=== PATIENT | female | born 1995 | race Caucasian/White ===

== ENCOUNTER 2018-03-08 09:37 | Inpatient (IN) | payer OTHER ==
[2018-03-08] MEDS ORDERED: DEXTROSE 5%-LACTATED RINGERS 1,000 ML IV SCH ×2 (10:00→18:15)
[2018-03-08 10:44] VITALS: BMI 32.5
[2018-03-08 10:56] LABS: BASO % 0.8 % (0-2.0); EOS % 0.6 % (0-4.5); HEMATOCRIT 40.7 % (32.4-45.2); HEMOGLOBIN 13.2 GM/dL (10.7-15.3); LYMPH % 14.5 % (8-40); MCH 28.4 pg (25.7-33.7); MCHC 32.6 g/dl (32.0-36.0); MEAN CELL VOLUME 87.2 fl (80-96); MEAN PLT VOLUME 9.6 fl (7.5-11.1); MONO % 6.2 % (3.8-10.2); NEUT % 77.9 % (42.8-82.8); PLATELET COUNT 263 K/MM3 (134-434); RBC 4.66 M/mm3 (3.60-5.2); RDW 15.5 % (11.6-15.6); WHITE BLOOD COUNT 13.4 K/mm3 (4.0-10.0)
[2018-03-08 11:01] LABS: INR 0.98 (0.83-1.09); PROTHROMBIN TIME (PATIENT) 11.6 SEC (9.7-13.0)
[2018-03-08 11:04] LABS: ACTIVATED PTT 25.5 SECONDS (25.2-36.5)
[2018-03-08] MEDS ORDERED: PROMETHAZINE HCL 25 MG/1 ML VIAL IVPB ONE (11:05)
[2018-03-08] MEDS ORDERED: BUTORPHANOL TARTRATE 1 MG/ML VIAL IVPB ONE (11:05)
[2018-03-08] MEDS ORDERED: BUTORPHANOL TARTRATE 1 MG/ML VIAL ONE ×4 (11:09→14:26)
[2018-03-08] MEDS ORDERED: PROMETHAZINE HCL 25 MG/1 ML VIAL ONE ×2 (11:10→14:27)
[2018-03-08 11:39] LABS: ANION GAP 9 MMOL/L (8-16); BLOOD UREA NITROGEN 5 mg/dL (7-18); CALCIUM 9.6 mg/dL (8.5-10.1); CHLORIDE 105 mmol/L (98-107); CO2 20 mmol/L (21-32); CREATININE 0.5 mg/dL (0.55-1.3); GLUCOSE,RANDOM 107 mg/dL (74-106); POTASSIUM 4.4 mmol/L (3.5-5.1); SODIUM 135 mmol/L (136-145)
[2018-03-08] MEDS ORDERED: PROMETHAZINE HCL 25 MG/1 ML VIAL IVPUSH ONE (14:35)
[2018-03-08] MEDS ORDERED: BUTORPHANOL TARTRATE 1 MG/ML VIAL IVPUSH ONE (14:35)
--- NOTE | 2018-03-08 18:10 | HP ---
Past Medical History - Admission Chief Complaint: Labor pain History of Present Illness: 22 yo , LMP 05/26/17, EDC 03/06/18 @ 40 weeks gestation, admitted for labor pain. Upon admission she was 4cm dilated. History Source: Patient Limitations to Obtaining History: No Limitations - Past Medical History ...: 1 ...Para: 0 ...Term: 0 ...: 0 ...Spon : 0 ...Induced : 0 ...Multiple Gestation: 0 ...LMP: 05/26/17 ... Weeks Gestation by Dates: 39.3 ...EDC by Dates: 03/12/18 ...EDC by Sono: 03/06/18 - Past Surgical History Past Surgical History: Yes: None Hx Myomectomy: No Hx Transabdominal Cerclage: No - Smoking History Smoking history: Unknown if ever smoked Have you smoked in the past 12 months: No - Alcohol/Substance Use Hx Alcohol Use: No History of Substance Use: reports: None - Social History Usual Living Arrangement: Yes: With Parent History of Recent Travel: No Home Medications - Allergies Allergies/Adverse Reactions: Allergies Allergy/AdvReac Type Severity Reaction Status Date / Time No Known Allergies Allergy Verified 03/08/18 10:44 - Home Medications Home Medications: Ambulatory Orders Vit 108/Iron/Folic AC [ One Tablet] 1 each PO DAILY 01/05/18 Family Disease History - Family Disease History Family History: Unremarkable Review of Systems - Review of Systems Constitutional: reports: No Symptoms Eyes: reports: No Symptoms HENT: reports: No Symptoms Neck: reports: No Symptoms Cardiovascular: reports: No Symptoms Respiratory: reports: No Symptoms Gastrointestinal: reports: No Symptoms Genitourinary: reports: Pain Breasts: reports: No Symptoms Reported Musculoskeletal: reports: No Symptoms Integumentary: reports: No Symptoms Neurological: reports: No Symptoms Endocrine: reports: No Symptoms Hematology/Lymphatic: reports: No Symptoms Psychiatric: reports: No Symptoms Pain Intensity: 8 Physical Exam - Maternity Vital Signs: Vital Signs Temperature 99.1 F 03/08/18 14:00 Pulse Rate 112 H 03/08/18 17:00 Respiratory Rate 20 03/08/18 17:00 Blood Pressure 134/78 03/08/18 17:00 O2 Sat by Pulse Oximetry (%) Constitutional: Yes: Well Nourished Eyes: Yes: Conjunctiva Clear HENT: Yes: Atraumatic Neck: Yes: Supple Cardiovascular: Yes: Regular Rate and Rhythm Lungs: Clear to auscultation - Abdominal Exam/OB Number of Fetuses: Single Presentation: Vertex - Vaginal Exam/OB Dilatation (cm): 4 Effacement (%): 80 Station: -1 - Physical Exam ...Motor Strength: WNL Psychiatric: Yes: Alert, Oriented - Labs Lab Results: CBC, BMP 03/08/18 10:32 03/08/18 10:32 Problem List - Problems (1) Pain during labor Code(s): O99.89 - OTH DISEASES AND CONDITIONS COMPL PREG/CHLDBRTH; R52 - PAIN, UNSPECIFIED Assessment/Plan Active labor Admit to L&D Analgesia as needed Anticipate
[2018-03-08] MEDS ORDERED: OXYTOCIN 30 UNITS in 0.9% NS 30 UNIT/500 ML INFUS.BAG IVPB SCH (18:15)
--- NOTE | 2018-03-08 18:15 | PN ---
Progress Note (short form) - Note Progress Note: Patient seen and evaluated. She's in moderate discomfort after 2 doses of stadol; she refuses epidural anesthesia. FHR : Reassuring [place] : + irregular contractions VE : /-2 AROM : Light meconium A/P : 40 weeks gestation Active labor Pitocin augmentation Anticipate Problem List - Problems (1) Pain during labor Code(s): O99.89 - OTH DISEASES AND CONDITIONS COMPL PREG/CHLDBRTH; R52 - PAIN, UNSPECIFIED
--- NOTE | 2018-03-08 19:56 | PN ---
Progress Note (short form) - Note Progress Note: Patient seen and evaluated. She's in moderate discomfort after 2 doses of stadol; she refuses epidural anesthesia. FHR : Reassuring [place] : + irregular contractions VE : 8100/-1 A/P : 40 weeks gestation Failure to progress Pre op for primary Consent signed Anesthesia to see patient Problem List - Problems (1) Pain during labor Code(s): O99.89 - OTH DISEASES AND CONDITIONS COMPL PREG/CHLDBRTH; R52 - PAIN, UNSPECIFIED
[2018-03-08] MEDS ORDERED: morphine SULFATE/Preservative Free 0.5 MG/ML (1cc Syringe) ONE (20:36)
[2018-03-08] MEDS ORDERED: CITRIC ACID/SODIUM CITRATE 30 ML UNIT-DOSE CUP PO ONE (20:40)
[2018-03-08] MEDS ORDERED: ceFAZolin SODIUM 1 GM VIAL ONE (20:51)
[2018-03-08] MEDS ORDERED: PHENYLEPHRINE HCL 10 MG/1 ML SINGLE DOSE VIAL ONE (20:54)
[2018-03-08] MEDS ORDERED: METHYLERGONOVINE MALEATE 0.2 MG/1 ML AMP IM PRN (21:36)
[2018-03-08] MEDS ORDERED: IBUPROFEN 800 MG/8 ML IJ IVPB PRN (21:36)
--- NOTE | 2018-03-08 21:39 | OP ---
Operative Note - Note: Operative Date: 03/08/18 Pre-Operative Diagnosis: Failure to progress Operation: Primary Low Transverse Findings: Baby boy in LOT position Post-Operative Diagnosis: Same as Pre-op Surgeon: Doretha Ochoa Plane Captain: Brynn Snow Anesthesia: Spinal Specimens Removed: Placenta Estimated Blood Loss (mls): 600 Operative Report Dictated: Yes
[2018-03-08] MEDS ORDERED: OXYTOCIN 20 UNITS in 0.9% NS 20 UNIT/1,000 ML INFUS.BAG IV SCH (21:45)
[2018-03-08] MEDS ORDERED: OXYTOCIN 20 UNITS in 0.9% NS 20 UNIT/1,000 ML INFUS.BAG IV ONE (22:26)
[2018-03-09] MEDS: FERROUS SO4 325 MG TABLET (FP) PO SCH ×3 (01:03→22:13)
[2018-03-09 07:38] LABS: BASO % 0.5 % (0-2.0); EOS % 0.1 % (0-4.5); MCH 28.5 pg (25.7-33.7); MCHC 32.2 g/dl (32.0-36.0); MEAN CELL VOLUME 88.5 fl (80-96); MEAN PLT VOLUME 9.7 fl (7.5-11.1); MONO % 7.9 % (3.8-10.2); NEUT % 77.5 % (42.8-82.8); PLATELET COUNT 198 K/MM3 (134-434); RBC 3.84 M/mm3 (3.60-5.2); RDW 15.5 % (11.6-15.6)
--- NOTE | 2018-03-09 07:45 | PN ---
Post Progress Note - Subjective Subjective: 22 yo Para 1 status post primary , seen and evaluated. Doing well. Post Day: 1 Type of Delivery: Primary C/S Vital Signs: Vital Signs Temperature 98.7 F 03/09/18 06:00 Pulse Rate 118 H 03/09/18 06:00 Respiratory Rate 18 03/09/18 06:00 Blood Pressure 111/56 L 03/09/18 06:00 O2 Sat by Pulse Oximetry (%) 100 03/09/18 00:00 Breast Exam: Yes: Soft Uterus: Yes: Fundus @ umbilicus Incision: Yes: Dressing dry and intact Abdomen/GI: Yes: Abdomen soft Lochia: Yes: Rubra Lochia, amount: Small Extremities: Yes: Calves non-tender Activity: Other (She's lying in bed) - Labs Labs: CBC WBC 13.4 K/mm3 (4.0-10.0) H 03/08/18 10:32 RBC 4.66 M/mm3 (3.60-5.2) 03/08/18 10:32 Hgb 13.2 GM/dL (10.7-15.3) 03/08/18 10:32 Hct 40.7 % (32.4-45.2) 03/08/18 10:32 MCV 87.2 fl (80-96) 03/08/18 10:32 MCH 28.4 pg (25.7-33.7) 03/08/18 10:32 MCHC 32.6 g/dl (32.0-36.0) 03/08/18 10:32 RDW 15.5 % (11.6-15.6) 03/08/18 10:32 Plt Count 263 K/MM3 (134-434) 03/08/18 10:32 MPV 9.6 fl (7.5-11.1) 03/08/18 10:32 Absolute Neuts (auto) 10.5 K/mm3 (1.5-8.0) H 03/08/18 10:32 Neutrophils % 77.9 % (42.8-82.8) 03/08/18 10:32 Lymphocytes % 14.5 % (8-40) 03/08/18 10:32 Monocytes % 6.2 % (3.8-10.2) 03/08/18 10:32 Eosinophils % 0.6 % (0-4.5) 03/08/18 10:32 Basophils % 0.8 % (0-2.0) 03/08/18 10:32 Nucleated RBC % 0 % (0-0) 03/08/18 10:32 Problem List - Problems (1) Pain during labor Code(s): O99.89 - OTH DISEASES AND CONDITIONS COMPL PREG/CHLDBRTH; R52 - PAIN, UNSPECIFIED (2) Status post primary low transverse section Code(s): Z98.891 - HISTORY OF UTERINE SCAR FROM PREVIOUS SURGERY Assessment/Plan Status post primary Low Transverse Ambulation Analgesia as needed Continue post op care
[2018-03-09] MEDS ORDERED: LACTATED RINGERS SOLUTION 1,000 ML IV SCH ×2 (09:10→10:10)
[2018-03-09] MEDS ORDERED: DEXTROSE 5%-WATER - 50 ML IVPB ONE ×2 (10:03→18:54)
[2018-03-09] MEDS ORDERED: ceFAZolin SODIUM 1 GM VIAL ONE ×2 (10:03→18:55)
[2018-03-09] MEDS: CEFAZOLIN 1 GM in DEXTROSE 5%-WATER - 50 ML IVPB SCH ×2 (10:10→18:57)
[2018-03-09] MEDS: PRENATAL VITAMINS W/ FOLIC ACID TABLET (FP) PO SCH (10:37)
--- NOTE | 2018-03-09 11:06 | EKG ---
Test Reason : Blood Pressure : / mmHG Vent. Rate : 135 BPM Atrial Rate : 135 BPM P-R Int : 122 ms QRS Dur : 070 ms QT Int : 280 ms P-R-T Axes : 068 023 011 degrees QTc Int : 420 ms SINUS TACHYCARDIA MINIMAL VOLTAGE CRITERIA FOR LVH, MAY BE NORMAL VARIANT BORDERLINE ECG NO PREVIOUS ECGS AVAILABLE Confirmed by RAMONA WALKER, WOODY ([id number]) on 03/09/2018 11:05:54 AM Referred By: Morro AN Confirmed By:WOODY GREENE MD
--- NOTE | 2018-03-09 11:32 | CONSULT ---
Consultation: REQUESTING PROVIDER: Dr. Ochoa CONSULT REQUEST: We have been asked to medically evaluate this patient for tachycardia. HISTORY OF PRESENT ILLNESS: Patient is a 22 year old female, , with no significant past medical history , presented with persistent tachycardia one day after she had section. Patient's heart rate continued to be at the 110-120s. She was also noted to have low grade fever with Tmax of 100.6F. Patient initially came in yesterday for trial of induction of labor, which became unsuccessful, and section was done. Rupture of membranes prior to delivery about 3 hours. Patient denies dizziness, lightheadedness, nausea, vomiting, chest pain, SOB, palpitations, diarrhea, or urinary symptoms. REVIEW OF SYSTEMS: CONSTITUTIONAL: fever Absent:chills, diaphoresis, generalized weakness, malaise, loss of appetite, weight change HEENT: Absent: rhinorrhea, nasal congestion, throat pain, throat swelling, difficulty swallowing, mouth swelling, ear pain, eye pain, visual changes CARDIOVASCULAR: Absent: chest pain, syncope, palpitations, irregular heart rate, lightheadedness , peripheral edema RESPIRATORY: Absent: cough, shortness of breath, dyspnea with exertion, orthopnea, wheezing, stridor, hemoptysis GASTROINTESTINAL:abdominal pain Absent: abdominal distension, nausea, vomiting, diarrhea, constipation, melena, hematochezia GENITOURINARY: Absent: dysuria, frequency, urgency, hesitancy, hematuria, flank pain, genital pain MUSCULOSKELETAL: Absent: myalgia, arthralgia, joint swelling, back pain, neck pain SKIN: Absent: rash, itching, pallor HEMATOLOGIC/IMMUNOLOGIC: Absent: easy bleeding, easy bruising, lymphadenopathy, frequent infections ENDOCRINE: Absent: unexplained weight gain, unexplained weight loss, heat intolerance, cold intolerance NEUROLOGIC: Absent: headache, focal weakness or paresthesias, dizziness, unsteady gait, seizure, mental status changes, bladder or bowel incontinence PSYCHIATRIC: Absent: anxiety, depression, suicidal or homicidal ideation, hallucinations. PHYSICAL EXAMINATION Vital Signs - 24 hr 03/08/18 03/08/18 03/08/18 12:00 12:57 14:00 Temperature 99.1 F Pulse Rate 94 H 93 H 120 H Respiratory 18 20 20 Rate Blood Pressure 124/64 123/61 129/61 O2 Sat by Pulse Oximetry (%) 03/08/18 03/08/18 03/08/18 15:00 16:00 17:00 Temperature Pulse Rate 118 H 109 H 112 H Respiratory 20 20 20 Rate Blood Pressure 125/78 135/80 134/78 O2 Sat by Pulse Oximetry (%) 03/08/18 03/08/18 03/08/18 18:00 19:00 22:00 Temperature 98.4 F 100.3 F H Pulse Rate 109 H 112 H 135 H Respiratory 20 20 22 H Rate Blood Pressure 140/80 138/82 104/65 O2 Sat by Pulse 99 Oximetry (%) 03/08/18 03/08/18 03/08/18 22:15 22:30 22:45 Temperature Pulse Rate 125 H 120 H 128 H Respiratory 22 H 22 H 22 H Rate Blood Pressure 124/65 109/76 118/70 O2 Sat by Pulse 100 100 99 Oximetry (%) 03/08/18 03/08/18 03/09/18 23:00 23:30 00:00 Temperature 100.3 F H Pulse Rate 115 H 111 H 99 H Respiratory 22 H 20 20 Rate Blood Pressure 126/79 122/78 122/78 O2 Sat by Pulse 99 100 100 Oximetry (%) 03/09/18 03/09/18 03/09/18 00:30 01:00 02:00 Temperature 99.9 F H 100.1 F H Pulse Rate 114 H 112 H Respiratory 18 18 18 Rate Blood Pressure 121/61 103/53 L O2 Sat by Pulse Oximetry (%) 03/09/18 03/09/18 03/09/18 03:00 04:00 05:00 Temperature Pulse Rate Respiratory 18 18 18 Rate Blood Pressure O2 Sat by Pulse Oximetry (%) 03/09/18 03/09/18 06:00 07:30 Temperature 98.7 F 100.6 F H Pulse Rate 118 H 134 H Respiratory 18 21 H Rate Blood Pressure 111/56 L 118/70 O2 Sat by Pulse Oximetry (%) GENERAL: Awake, alert, and fully oriented, in no acute distress. HEAD: Normal with no signs of trauma. EYES: PERRLA, EOMI, sclera anicteric, conjunctiva clear. No lid lag. EARS, NOSE, THROAT: Ears normal, nares patent, oropharynx clear without exudates. LUNGS: Breath sounds equal, clear to auscultation bilaterally. HEART: Tachycardic, normal S1 and S2 without murmur, rub or gallop. ABDOMEN: Soft, +tenderness on incision site, not distended, normoactive bowel sounds. MUSCULOSKELETAL: Normal range of motion at all joints. No bony deformities or tenderness. No CVA tenderness. UPPER EXTREMITIES: 2+ pulses, warm, well-perfused. No cyanosis. No clubbing. No peripheral edema. LOWER EXTREMITIES: 2+ pulses, warm, well-perfused. No calf tenderness. No peripheral edema. NEUROLOGICAL: Cranial nerves II-XII intact. Normal speech. Normal gait. PSYCHIATRIC: Cooperative. Good eye contact. Appropriate mood and affect. SKIN: Warm, dry, normal turgor, no rashes or lesions noted. Laboratory Results - last 24 hr 03/08/18 03/08/18 03/08/18 10:32 10:32 10:32 WBC RBC Hgb Hct MCV MCH MCHC RDW Plt Count MPV Absolute Neuts (auto) Neutrophils % Lymphocytes % Monocytes % Eosinophils % Basophils % Nucleated RBC % Sodium 135 L Potassium 4.4 Chloride 105 Carbon Dioxide 20 L Anion Gap 9 BUN 5 L Creatinine 0.5 L Creat Clearance w eGFR > 60 Random Glucose 107 H Calcium 9.6 RPR Titer Nonreactive Blood Type B POSITIVE Antibody Screen Negative 03/08/18 03/09/18 10:44 06:20 WBC 17.0 H RBC 3.84 Hgb 11.0 Hct 34.0 D MCV 88.5 MCH 28.5 MCHC 32.2 RDW 15.5 Plt Count 198 D MPV 9.7 Absolute Neuts (auto) 13.2 H Neutrophils % 77.5 Lymphocytes % 14.0 Monocytes % 7.9 Eosinophils % 0.1 D Basophils % 0.5 Nucleated RBC % 0 Sodium Potassium Chloride Carbon Dioxide Anion Gap BUN Creatinine Creat Clearance w eGFR Random Glucose Calcium RPR Titer Blood Type B POSITIVE Antibody Screen Active Medications Generic Name Dose Route Start Last Admin Trade Name Freq PRN Reason Stop Dose Admin Bisacodyl 10 mg 03/09/18 21:36 Dulcolax Suppository - RC PRN PRN CONSTIPATION Ferrous Sulfate 325 mg 03/08/18 22:00 03/09/18 10:37 Feosol - PO 325 mg BID STEPHEN Administration Dextrose/Lactated Ringer's 1,000 mls @ 125 mls/hr 03/08/18 18:15 03/08/18 18: 36 D5-Lr - IV Not Given ASDIR STEPHEN Oxytocin/Sodium Chloride 20 unit in 1,000 mls @ 125 mls/hr 03/08/18 21:45 22:25 Normal Saline+20 Units Oxytocin - IV 125 mls/hr ASDIR STEPHEN Administration Cefazolin Sodium 1 gm/ 50 mls @ 100 mls/hr 03/09/18 10:00 03/09/18 10:10 Dextrose IVPB 100 mls/hr Q8H-IV STEPHEN Administration Sodium Chloride 1,000 mls @ 100 mls/hr 03/09/18 11:30 Normal Saline - IV 03/10/18 21:29 ASDIR STEPHEN Ibuprofen 600 mg 03/08/18 21:36 Motrin - PO Q4H PRN PAIN LEVEL 1 - 3 Ibuprofen 800 mg 03/08/18 21:36 03/09/18 10:48 Caldolor Injection - IVPB 800 mg Q8H PRN Administration PAIN LEVEL 4 - 6 Methylergonovine Maleate 0.2 mg 03/08/18 21:36 Methergine Injection - IM Q4H PRN Excessive Bleeding (L&D) Oxycodone HCl 5 mg 03/08/18 21:36 Roxicodone - PO Q4H PRN PAIN LEVEL 4 - 6 Multivit/Folic Acid/Iron 1 tab 03/09/18 10:00 03/09/18 10:37 Vitamins (Sjr) - PO 1 tab DAILY STEPHEN Administration Simethicone 80 mg 03/08/18 21:36 Mylicon - PO Q4H PRN GAS ASSESSMENT/PLAN: Patient is a 22 year old female, , with no significant past medical history , presented with persistent tachycardia one day after she had section. #Sepsis: likely 2/2 chorioamnionitis vs endometritis -HR 120s, Temp 100.6F, WBC 17 -EKG done - sinus tachycardia. Will continue to monitor. -IV NS @100ml/hr x2L -Continue Cefazolin q8h -Blood cultures ordered -Urinalysis ordered -Lactic acid ordered #FEN -IV NS @100ml/hr -electrolytes wnl -diet as per OB #Prophylaxis -SCDs Dispo: We will continue to follow the patient. Thank you for this consultative opportunity. Visit type - Emergency Visit Emergency Visit: No - New Patient This patient is new to me today: Yes Date on this admission: 03/09/18 - Critical Care Critical Care patient: No
[2018-03-09] MEDS: SODIUM CHLORIDE 1,000 ML IV SCH ×2 (11:53→17:04)
[2018-03-09 12:23] LABS: URINE APPEARANCE CLEAR; URINE BILIRUBIN NEGATIVE (<2.0 mg/dL); URINE COLOR LTYELLOW; URINE GLUCOSE (UA) NEGATIVE (NEGATIVE); URINE KETONE TRACE (NEGATIVE); URINE LEUK ESTERASE NEGATIVE (NEGATIVE); URINE NITRITE NEGATIVE (NEGATIVE); URINE PROTEIN NEGATIVE (NEGATIVE); URINE UROBILINOGEN NEGATIVE mg/dL (0.2-1.0)
[2018-03-09 12:28] LABS: EPI CELLS RARE /HPF (FEW); URINE BACTERIA RARE /hpf (NONE SEEN); URINE MUCUS RARE
--- NOTE | 2018-03-09 12:59 | PN ---
Progress Note (short form) - Note Progress Note: ANESTHESIOLOGY 22F s/p under spinal anesthesia POD #1. No acute complaints. Pain 0/ 10 and tolerable with TECHNICAL AGRONOMIST. Denies N/V, headache, backache, numbness, weakness. Gen: awake, alert , NAD Ext: no sensory or motor deficits in B/L lower ext No apparent anesthesia complications. Pain controlled. Continue management as per primary team
--- NOTE | 2018-03-09 13:20 | PN ---
Teaching Attending Note Name of Resident: Akila Guzman ATTENDING PHYSICIAN STATEMENT I saw and evaluated the patient. I reviewed the resident's note and discussed the case with the resident. I agree with the resident's findings and plan as documented. SUBJECTIVE:states she had some abdominal pain earlier but now feels better. denies Cp, SOB, fever, chills, N/V/C/D, denies vaginal discharge or hemoptysis no hx of cardiac problems. no family hx of cardiac disease. only took vitamin. OBJECTIVE: Last Vital Signs Temp Pulse Resp BP Pulse Ox 100.6 F H 134 H 21 H 118/70 100 03/09/18 07:30 03/09/18 07:30 03/09/18 07:30 03/09/18 07:30 03/09/18 00:00 General fatigued CV S1 S2 tachy Lungs CTA B/L no wheezing/rales/rhonchi Abdomen soft +gravid uterus. diffuse tenderness Extremities trace pedal edema, no calf tenderness ASSESSMENT AND PLAN: 22yo F with no PMH presented to the hospital in active labor. due to failure to progress pt had performed on 03/08 without complication. Medicine team consulted due to tachycardia. Medicine consulted due to tachycardia and found to meet SIRS criteria 1.Tachycardia- stat EKG done showing sinus tachycardia. currently HR is 112 on my exam. likely due to dehydration and pain from surgery. pt had low grade fever and with leukocytosis but is within 24H post-op from . Check lactate, UA and blood cx. pt was negative for GBS and there was no PROM to suggest endometritis or chorioamionitis and abdominal pain is not out of proportion to exam. started on prophylactic cefazolin by OB. will give another 2L NS bolus and hydrate. encourage pt to request pain medications as needed. 2. spoke wtih family present in the room. all questions answered. verbalized understanding and agreement to plan.
[2018-03-09] MEDS: IBUPROFEN 600 MG TABLET (FP) PO PRN (17:03)
[2018-03-09] MEDS: oxyCODONE HCL 5 MG TABLET PO PRN (17:03)
[2018-03-09] MEDS: SIMETHICONE 80 MG TAB.CHEW (FP) PO PRN (17:04)
[2018-03-09] MEDS ORDERED: BISACODYL 10 MG SUPP.RECT RC PRN (21:36)
[2018-03-10] MEDS: SIMETHICONE 80 MG TAB.CHEW (FP) PO PRN ×3 (00:56→20:12)
[2018-03-10] MEDS: oxyCODONE HCL 5 MG TABLET PO PRN ×3 (00:58→20:12)
[2018-03-10] MEDS: IBUPROFEN 600 MG TABLET (FP) PO PRN ×3 (00:59→20:12)
[2018-03-10] MEDS ORDERED: ceFAZolin SODIUM 1 GM VIAL ONE ×3 (01:04→17:06)
[2018-03-10] MEDS ORDERED: DEXTROSE 5%-WATER - 50 ML IVPB ONE ×3 (01:04→17:06)
[2018-03-10] MEDS: CEFAZOLIN 1 GM in DEXTROSE 5%-WATER - 50 ML IVPB SCH ×3 (01:05→17:11)
--- NOTE | 2018-03-10 06:04 | PN ---
Post Progress Note - Subjective Subjective: 22 yo Para 1 status post primary , seen and evaluated. Doing well. She denies any palpitation nor SOB. She's afebrile. Post Day: 2 Type of Delivery: Primary C/S Vital Signs: Vital Signs Temperature 98.3 F 03/10/18 05:57 Pulse Rate 103 H 03/10/18 05:57 Respiratory Rate 18 03/10/18 05:57 Blood Pressure 122/62 03/10/18 05:57 O2 Sat by Pulse Oximetry (%) 100 03/09/18 21:00 Breast Exam: Yes: Soft Uterus: Yes: Fundus Firm Incision: Yes: Dressing dry and intact Abdomen/GI: Yes: Abdomen soft, Tolerating PO Lochia: Yes: Rubra Lochia, amount: Small Extremities: Yes: Calves non-tender Perineum: Yes: Intact Activity: Ambulating - Labs Labs: CBC WBC 17.0 K/mm3 (4.0-10.0) H 03/09/18 06:20 RBC 3.84 M/mm3 (3.60-5.2) 03/09/18 06:20 Hgb 11.0 GM/dL (10.7-15.3) 03/09/18 06:20 Hct 34.0 % (32.4-45.2) D 03/09/18 06:20 MCV 88.5 fl (80-96) 03/09/18 06:20 MCH 28.5 pg (25.7-33.7) 03/09/18 06:20 MCHC 32.2 g/dl (32.0-36.0) 03/09/18 06:20 RDW 15.5 % (11.6-15.6) 03/09/18 06:20 Plt Count 198 K/MM3 (134-434) D 03/09/18 06:20 MPV 9.7 fl (7.5-11.1) 03/09/18 06:20 Absolute Neuts (auto) 13.2 K/mm3 (1.5-8.0) H 03/09/18 06:20 Neutrophils % 77.5 % (42.8-82.8) 03/09/18 06:20 Lymphocytes % 14.0 % (8-40) 03/09/18 06:20 Monocytes % 7.9 % (3.8-10.2) 03/09/18 06:20 Eosinophils % 0.1 % (0-4.5) D 03/09/18 06:20 Basophils % 0.5 % (0-2.0) 03/09/18 06:20 Nucleated RBC % 0 % (0-0) 03/09/18 06:20 Problem List - Problems (1) Pain during labor Code(s): O99.89 - OTH DISEASES AND CONDITIONS COMPL PREG/CHLDBRTH; R52 - PAIN, UNSPECIFIED (2) Status post primary low transverse section Code(s): Z98.891 - HISTORY OF UTERINE SCAR FROM PREVIOUS SURGERY Assessment/Plan Status post primary Low Transverse Ambulation Analgesia as needed Follow up repeat CBC
[2018-03-10 07:51] LABS: BASO % 0.3 % (0-2.0); EOS % 1.2 % (0-4.5); HEMATOCRIT 30.7 % (32.4-45.2); HEMOGLOBIN 10.3 GM/dL (10.7-15.3); MCH 29.5 pg (25.7-33.7); MCHC 33.4 g/dl (32.0-36.0); MEAN CELL VOLUME 88.1 fl (80-96); MEAN PLT VOLUME 9.5 fl (7.5-11.1); MONO % 6.2 % (3.8-10.2); NEUT % 74.3 % (42.8-82.8); PLATELET COUNT 229 K/MM3 (134-434); RBC 3.49 M/mm3 (3.60-5.2); RDW 15.6 % (11.6-15.6); WHITE BLOOD COUNT 15.5 K/mm3 (4.0-10.0)
[2018-03-10] MEDS: FERROUS SO4 325 MG TABLET (FP) PO SCH ×3 (10:27→22:15)
[2018-03-10] MEDS: PRENATAL VITAMINS W/ FOLIC ACID TABLET (FP) PO SCH (10:27)
--- NOTE | 2018-03-10 16:58 | CONSULT ---
Consultation: REQUESTING PROVIDER: Dr. Ochoa CONSULT REQUEST: We have been asked to medically evaluate this patient for tachycardia HISTORY OF PRESENT ILLNESS: REVIEW OF SYSTEMS: CONSTITUTIONAL: Absent: fever, chills, diaphoresis, generalized weakness, malaise, loss of appetite, weight change HEENT: Absent: rhinorrhea, nasal congestion, throat pain, throat swelling, difficulty swallowing, mouth swelling, ear pain, eye pain, visual changes CARDIOVASCULAR: Absent: chest pain, syncope, palpitations, irregular heart rate, lightheadedness , peripheral edema RESPIRATORY: Absent: cough, shortness of breath, dyspnea with exertion, orthopnea, wheezing, stridor, hemoptysis GASTROINTESTINAL: Absent: abdominal pain, abdominal distension, nausea, vomiting, diarrhea, constipation, melena, hematochezia GENITOURINARY: Absent: dysuria, frequency, urgency, hesitancy, hematuria, flank pain, genital pain MUSCULOSKELETAL: Absent: myalgia, arthralgia, joint swelling, back pain, neck pain SKIN: Absent: rash, itching, pallor HEMATOLOGIC/IMMUNOLOGIC: Absent: easy bleeding, easy bruising, lymphadenopathy, frequent infections ENDOCRINE: Absent: unexplained weight gain, unexplained weight loss, heat intolerance, cold intolerance NEUROLOGIC: Absent: headache, focal weakness or paresthesias, dizziness, unsteady gait, seizure, mental status changes, bladder or bowel incontinence PSYCHIATRIC: Absent: anxiety, depression, suicidal or homicidal ideation, hallucinations. PHYSICAL EXAMINATION Vital Signs - 24 hr 03/09/18 03/09/18 03/09/18 18:00 19:00 20:00 Temperature 98.7 F Pulse Rate 111 H Respiratory 20 18 18 Rate Blood Pressure 117/65 O2 Sat by Pulse Oximetry (%) 03/09/18 03/09/18 03/10/18 21:00 22:00 02:00 Temperature 98 F 98.1 F Pulse Rate 117 H 116 H Respiratory 18 18 18 Rate Blood Pressure 105/59 L 124/48 L O2 Sat by Pulse 100 Oximetry (%) 03/10/18 03/10/18 03/10/18 05:57 07:30 13:29 Temperature 98.3 F 98.5 F 98.2 F Pulse Rate 103 H 109 H 106 H Respiratory 18 18 18 Rate Blood Pressure 122/62 110/69 121/61 O2 Sat by Pulse Oximetry (%) GENERAL: Awake, alert, and fully oriented, in no acute distress. HEAD: Normal with no signs of trauma. EYES: Pupils equal, round and reactive to light, extraocular movements intact, sclera anicteric, conjunctiva clear. No lid lag. EARS, NOSE, THROAT: Ears normal, nares patent, oropharynx clear without exudates. Moist mucous membranes. NECK: Normal range of motion, supple without lymphadenopathy, JVD, or masses. LUNGS: Breath sounds equal, clear to auscultation bilaterally. No wheezes, and no crackles. No accessory muscle use. HEART: Regular rate and rhythm, normal S1 and S2 without murmur, rub or gallop. ABDOMEN: Soft, nontender, not distended, normoactive bowel sounds, no guarding, no rebound, no masses. No hepatomegaly or splenomegaly. MUSCULOSKELETAL: Normal range of motion at all joints. No bony deformities or tenderness. No CVA tenderness. UPPER EXTREMITIES: 2+ pulses, warm, well-perfused. No cyanosis. No clubbing. Cap refill <2 seconds. No peripheral edema. LOWER EXTREMITIES: 2+ pulses, warm, well-perfused. No calf tenderness. No peripheral edema. NEUROLOGICAL: Cranial nerves II-XII intact. Normal speech. Normal gait. PSYCHIATRIC: Cooperative. Good eye contact. Appropriate mood and affect. SKIN: Warm, dry, normal turgor, no rashes or lesions noted. Laboratory Results - last 24 hr 03/10/18 07:10 WBC 15.5 H RBC 3.49 L Hgb 10.3 L Hct 30.7 L MCV 88.1 MCH 29.5 MCHC 33.4 RDW 15.6 Plt Count 229 MPV 9.5 Absolute Neuts (auto) 11.5 H Neutrophils % 74.3 Lymphocytes % 18.0 D Monocytes % 6.2 Eosinophils % 1.2 D Basophils % 0.3 Nucleated RBC % 0 Active Medications Generic Name Dose Route Start Last Admin Trade Name Freq PRN Reason Stop Dose Admin Bisacodyl 10 mg 03/09/18 21:36 03/10/18 08:06 Dulcolax Suppository - RC 10 mg PRN PRN Administration CONSTIPATION Ferrous Sulfate 325 mg 03/08/18 22:00 03/10/18 10:27 Feosol - PO Not Given BID STEPHEN Dextrose/Lactated Ringer's 1,000 mls @ 125 mls/hr 03/08/18 18:15 03/08/18 18: 36 D5-Lr - IV Not Given ASDIR STEPHEN Oxytocin/Sodium Chloride 20 unit in 1,000 mls @ 125 mls/hr 03/08/18 21:45 22:25 Normal Saline+20 Units Oxytocin - IV 125 mls/hr ASDIR STEPHEN Administration Cefazolin Sodium 1 gm/ 50 mls @ 100 mls/hr 03/09/18 10:00 03/10/18 09:06 Dextrose IVPB 100 mls/hr Q8H-IV STEPHEN Administration Sodium Chloride 1,000 mls @ 100 mls/hr 03/09/18 11:30 03/09/18 17:04 Normal Saline - IV 03/10/18 21:29 100 mls/hr ASDIR STEPHEN Administration Ibuprofen 600 mg 03/08/18 21:36 03/10/18 11:38 Motrin - PO 600 mg Q4H PRN Administration PAIN LEVEL 1 - 3 Ibuprofen 800 mg 03/08/18 21:36 03/09/18 10:48 Caldolor Injection - IVPB 800 mg Q8H PRN Administration PAIN LEVEL 4 - 6 Methylergonovine Maleate 0.2 mg 03/08/18 21:36 Methergine Injection - IM Q4H PRN Excessive Bleeding (L&D) Oxycodone HCl 5 mg 03/08/18 21:36 03/10/18 11:37 Roxicodone - PO 5 mg Q4H PRN Administration PAIN LEVEL 4 - 6 Multivit/Folic Acid/Iron 1 tab 03/09/18 10:00 03/10/18 10:27 Vitamins (Sjr) - PO Not Given DAILY STEPHEN Simethicone 80 mg 03/08/18 21:36 03/10/18 11:39 Mylicon - PO 80 mg Q4H PRN Administration GAS ASSESSMENT/PLAN: Dispo: We will continue to follow the patient. Thank you for this consultative opportunity.
--- NOTE | 2018-03-10 17:00 | PN ---
Physical Exam: SUBJECTIVE: Patient seen and examined - mild abdominal pain persists, no chest pain or shortness of breath. Denies palpitations. OBJECTIVE: Vital Signs Period Temp Pulse Resp BP Sys/Hamilton Pulse Ox Last 24 Hr 98 F-98.7 F 103-117 18-20 105-124/48-69 100 GENERAL: A&Ox3, no acute distress EYES: PERRLA, EOMI ENT: Moist mucus membranes NECK: No JVD LUNGS: CTA, no wheezes HEART: mildly tachycardic, no murmurs ABDOMEN: Soft, nontender, BS present, abdominal scar on lower abdomen present, non-draining MUSCULOSKELETAL: No CVA Tenderness EXTREMITIES: 2+ pulses, no edema. NEUROLOGICAL: Cranial nerves II-XII intact. Laboratory Results - last 24 hr 03/10/18 07:10 WBC 15.5 H RBC 3.49 L Hgb 10.3 L Hct 30.7 L MCV 88.1 MCH 29.5 MCHC 33.4 RDW 15.6 Plt Count 229 MPV 9.5 Absolute Neuts (auto) 11.5 H Neutrophils % 74.3 Lymphocytes % 18.0 D Monocytes % 6.2 Eosinophils % 1.2 D Basophils % 0.3 Nucleated RBC % 0 Active Medications Generic Name Dose Route Start Last Admin Trade Name Freq PRN Reason Stop Dose Admin Bisacodyl 10 mg 03/09/18 21:36 03/10/18 08:06 Dulcolax Suppository - RC 10 mg PRN PRN Administration CONSTIPATION Ferrous Sulfate 325 mg 03/08/18 22:00 03/10/18 10:27 Feosol - PO Not Given BID STEPHEN Dextrose/Lactated Ringer's 1,000 mls @ 125 mls/hr 03/08/18 18:15 03/08/18 18: 36 D5-Lr - IV Not Given ASDIR STEPHEN Oxytocin/Sodium Chloride 20 unit in 1,000 mls @ 125 mls/hr 03/08/18 21:45 22:25 Normal Saline+20 Units Oxytocin - IV 125 mls/hr ASDIR STEPHEN Administration Cefazolin Sodium 1 gm/ 50 mls @ 100 mls/hr 03/09/18 10:00 03/10/18 09:06 Dextrose IVPB 100 mls/hr Q8H-IV STEPHEN Administration Sodium Chloride 1,000 mls @ 100 mls/hr 03/09/18 11:30 03/09/18 17:04 Normal Saline - IV 03/10/18 21:29 100 mls/hr ASDIR STEPHEN Administration Ibuprofen 600 mg 03/08/18 21:36 03/10/18 11:38 Motrin - PO 600 mg Q4H PRN Administration PAIN LEVEL 1 - 3 Ibuprofen 800 mg 03/08/18 21:36 03/09/18 10:48 Caldolor Injection - IVPB 800 mg Q8H PRN Administration PAIN LEVEL 4 - 6 Methylergonovine Maleate 0.2 mg 03/08/18 21:36 Methergine Injection - IM Q4H PRN Excessive Bleeding (L&D) Oxycodone HCl 5 mg 03/08/18 21:36 03/10/18 11:37 Roxicodone - PO 5 mg Q4H PRN Administration PAIN LEVEL 4 - 6 Multivit/Folic Acid/Iron 1 tab 03/09/18 10:00 03/10/18 10:27 Vitamins (Sjr) - PO Not Given DAILY STEPHEN Simethicone 80 mg 03/08/18 21:36 03/10/18 11:39 Mylicon - PO 80 mg Q4H PRN Administration GAS ASSESSMENT/PLAN: Patient is a 22 year old female, , with no significant past medical history , presented with persistent tachycardia one day after she had section. #Tachycardia: likely secondary to post-surgical stress vs dehydration -HR improved, continue to monitor -EKG done - sinus tachycardia. Will continue to monitor. -continue IV NS @100ml/hr x2L -Continue Cefazolin q8h per OB -f/u cultures #FEN -IV NS @100ml/hr -electrolytes wnl -diet as per OB #Prophylaxis -SCDs Dispo: We will continue to follow the patient. Thank you for this consultative opportunity. Visit type - Emergency Visit Emergency Visit: No - New Patient This patient is new to me today: No - Critical Care Critical Care patient: No
--- NOTE | 2018-03-10 17:05 | PN ---
Teaching Attending Note Name of Resident: Artis Brown ATTENDING PHYSICIAN STATEMENT I saw and evaluated the patient. I reviewed the resident's note and discussed the case with the resident. I agree with the resident's findings and plan as documented. SUBJECTIVE:conitnues to have pain but improved wtih medication.denies Cp, SOB, fever, chills, cough, hemoptysis OBJECTIVE: Last Vital Signs Temp Pulse Resp BP Pulse Ox 98.2 F 106 H 18 121/61 100 03/10/18 13:29 03/10/18 13:29 03/10/18 13:29 03/10/18 13:29 03/09/18 21:00 General NAD CV S1 S2 tachy Lungs CTA B/L no wheezing/rales/rhonchi Abdomen soft +gravid uterus. diffuse tenderness Extremities trace pedal edema, no calf tenderness ASSESSMENT AND PLAN: 22yo F with no PMH presented to the hospital in active labor. due to failure to progress pt had performed on 03/08 without complication. Medicine team consulted due to tachycardia. Medicine consulted due to tachycardia and found to meet SIRS criteria 1.Sinus Tachycardia-likely due to vs infection vs dehydration vs pain. overall now improved. would cont low dose IVF. empiric abx started by OB. encouraged pt to request pain medications if needed as it appears she is not requesting. f/u cx. 2. spoke wtih family present in the room. all questions answered. verbalized understanding and agreement to plan.
[2018-03-10] MEDS: SODIUM CHLORIDE 1,000 ML IV SCH (18:30)
[2018-03-11] MEDS ORDERED: DEXTROSE 5%-WATER - 50 ML IVPB ONE ×2 (01:45→09:07)
[2018-03-11] MEDS ORDERED: ceFAZolin SODIUM 1 GM VIAL ONE ×2 (01:46→09:07)
[2018-03-11] MEDS: CEFAZOLIN 1 GM in DEXTROSE 5%-WATER - 50 ML IVPB SCH ×2 (01:47→09:13)
[2018-03-11 08:11] LABS: BASO % 0.6 % (0-2.0); EOS % 2.8 % (0-4.5); HEMOGLOBIN 10.2 GM/dL (10.7-15.3); LYMPH % 18.9 % (8-40); MCH 28.2 pg (25.7-33.7); MCHC 31.8 g/dl (32.0-36.0); MEAN CELL VOLUME 88.5 fl (80-96); MEAN PLT VOLUME 9.5 fl (7.5-11.1); MONO % 5.5 % (3.8-10.2); NEUT % 72.2 % (42.8-82.8); PLATELET COUNT 231 K/MM3 (134-434); RBC 3.62 M/mm3 (3.60-5.2); RDW 15.4 % (11.6-15.6); WHITE BLOOD COUNT 13.6 K/mm3 (4.0-10.0)
[2018-03-11] MEDS: PRENATAL VITAMINS W/ FOLIC ACID TABLET (FP) PO SCH (09:13)
[2018-03-11] MEDS: FERROUS SO4 325 MG TABLET (FP) PO SCH ×3 (09:13→22:48)
--- NOTE | 2018-03-11 12:00 | PN ---
Post Progress Note - Subjective Subjective: 22 yo Para 1 status post primary , seen and evaluated. She's afebrile and white count is on decreasing trend. Post Day: 3 Type of Delivery: Primary C/S Vital Signs: Vital Signs Temperature 98.2 F 03/11/18 07:15 Pulse Rate 104 H 03/11/18 07:15 Respiratory Rate 18 03/11/18 07:15 Blood Pressure 138/70 03/11/18 07:15 O2 Sat by Pulse Oximetry (%) 100 03/09/18 21:00 Breast Exam: Yes: Soft Uterus: Yes: Fundus Firm Incision: Yes: Irene intact Abdomen/GI: Yes: Abdomen soft, Tolerating PO Lochia: Yes: Rubra Lochia, amount: Small Extremities: Yes: Calves non-tender Perineum: Yes: Intact Activity: Ambulating - Labs Labs: CBC WBC 13.6 K/mm3 (4.0-10.0) H 03/11/18 07:15 RBC 3.62 M/mm3 (3.60-5.2) 03/11/18 07:15 Hgb 10.2 GM/dL (10.7-15.3) L 03/11/18 07:15 Hct 32.0 % (32.4-45.2) L 03/11/18 07:15 MCV 88.5 fl (80-96) 03/11/18 07:15 MCH 28.2 pg (25.7-33.7) 03/11/18 07:15 MCHC 31.8 g/dl (32.0-36.0) L 03/11/18 07:15 RDW 15.4 % (11.6-15.6) 03/11/18 07:15 Plt Count 231 K/MM3 (134-434) 03/11/18 07:15 MPV 9.5 fl (7.5-11.1) 03/11/18 07:15 Absolute Neuts (auto) 9.8 K/mm3 (1.5-8.0) H 03/11/18 07:15 Neutrophils % 72.2 % (42.8-82.8) 03/11/18 07:15 Lymphocytes % 18.9 % (8-40) 03/11/18 07:15 Monocytes % 5.5 % (3.8-10.2) 03/11/18 07:15 Eosinophils % 2.8 % (0-4.5) D 03/11/18 07:15 Basophils % 0.6 % (0-2.0) 03/11/18 07:15 Nucleated RBC % 0 % (0-0) 03/11/18 07:15 Problem List - Problems (1) Pain during labor Code(s): O99.89 - OTH DISEASES AND CONDITIONS COMPL PREG/CHLDBRTH; R52 - PAIN, UNSPECIFIED (2) Status post primary low transverse section Code(s): Z98.891 - HISTORY OF UTERINE SCAR FROM PREVIOUS SURGERY Assessment/Plan Status post primary Low Transverse Stable Continue post op care D/C home in am
[2018-03-11] MEDS: oxyCODONE HCL 5 MG TABLET PO PRN (14:07)
[2018-03-11] MEDS: IBUPROFEN 600 MG TABLET (FP) PO PRN (14:09)
[2018-03-11] MEDS: SIMETHICONE 80 MG TAB.CHEW (FP) PO PRN (14:11)
--- NOTE | 2018-03-11 15:02 | PN ---
Teaching Attending Note Name of Resident: Bernard Evans ATTENDING PHYSICIAN STATEMENT I saw and evaluated the patient. I reviewed the resident's note and discussed the case with the resident. I agree with the resident's findings and plan as documented. SUBJECTIVE: asymptomatic. dnies CP, SOB, fever, chills, N/V/C/D OBJECTIVE: Last Vital Signs Temp Pulse Resp BP Pulse Ox 98.2 F 104 H 18 138/70 100 03/11/18 07:15 03/11/18 07:15 03/11/18 07:15 03/11/18 07:15 03/09/18 21:00 General NAD CV S1 S2 RRR no murmur/rub/gallop ASSESSMENT AND PLAN: 22yo F with no PMH presented to the hospital in active labor. due to failure to progress pt had performed on 03/08 without complication. Medicine team consulted due to tachycardia. Medicine consulted due to tachycardia and found to meet SIRS criteria 1.Sinus Tachycardia-likely due to vs infection vs dehydration vs pain. overall now improved. HR improved. would d/c IVF if eating well and consider stopping Abx as no source of infection. encouraged pt to f/u with PMD in 1-2weeks to re-evaluate and determine if further testing is necessary. 2. spoke wtih family present in the room. all questions answered. verbalized understanding and agreement to plan. 3. thank you for this consultative opportunity. PLease re-consult if needed
--- NOTE | 2018-03-11 19:34 | PN ---
Physical Exam: SUBJECTIVE: Patient seen and examined at bedside. No acute events overnight. Pt denies chest pain or shortness of breath. Denies fevers. OBJECTIVE: Vital Signs Period Temp Pulse Resp BP Sys/Hamilton Pulse Ox Last 24 Hr 97.8 F-98.5 F 100-118 18-18 103-138/60-84 GENERAL: AAOx3 NAD LUNGS: CTA B/L HEART: Tachycardia. no MRG S1S2 ABDOMEN: Soft, nondistended. surgical incision. No drainage or discharge. EXTREMITIES: No CCE NEUROLOGICAL: CN 2-12 intact PSYCH: Normal mood, normal affect. SKIN: Warm, no rashes or lesions appreciated Laboratory Results - last 24 hr 03/11/18 07:15 WBC 13.6 H RBC 3.62 Hgb 10.2 L Hct 32.0 L MCV 88.5 MCH 28.2 MCHC 31.8 L RDW 15.4 Plt Count 231 MPV 9.5 Absolute Neuts (auto) 9.8 H Neutrophils % 72.2 Lymphocytes % 18.9 Monocytes % 5.5 Eosinophils % 2.8 D Basophils % 0.6 Nucleated RBC % 0 Active Medications Generic Name Dose Route Start Last Admin Trade Name Freq PRN Reason Stop Dose Admin Bisacodyl 10 mg 03/09/18 21:36 03/10/18 08:06 Dulcolax Suppository - RC 10 mg PRN PRN Administration CONSTIPATION Ferrous Sulfate 325 mg 03/08/18 22:00 03/11/18 09:13 Feosol - PO 325 mg BID STEPHEN Administration Oxytocin/Sodium Chloride 20 unit in 1,000 mls @ 125 mls/hr 03/08/18 21:45 22:25 Normal Saline+20 Units Oxytocin - IV 125 mls/hr ASDIR STEPHEN Administration Ibuprofen 600 mg 03/08/18 21:36 03/11/18 14:09 Motrin - PO 600 mg Q4H PRN Administration PAIN LEVEL 1 - 3 Ibuprofen 800 mg 03/08/18 21:36 03/09/18 10:48 Caldolor Injection - IVPB 800 mg Q8H PRN Administration PAIN LEVEL 4 - 6 Methylergonovine Maleate 0.2 mg 03/08/18 21:36 Methergine Injection - IM Q4H PRN Excessive Bleeding (L&D) Oxycodone HCl 5 mg 03/08/18 21:36 03/11/18 14:07 Roxicodone - PO 5 mg Q4H PRN Administration PAIN LEVEL 4 - 6 Multivit/Folic Acid/Iron 1 tab 03/09/18 10:00 03/11/18 09:13 Vitamins (Sjr) - PO 1 tab DAILY STEPHEN Administration Simethicone 80 mg 03/08/18 21:36 03/11/18 14:11 Mylicon - PO 80 mg Q4H PRN Administration GAS ASSESSMENT/PLAN: Patient is a 22 year old female, , with no significant past medical history , presented with persistent tachycardia one day after she had section. #Tachycardia: likely secondary to post-surgical stress vs dehydration. Resolving. -Continue management as per OB. Re consult as needed. Thank you for this consultive opportunity. . Visit type - Emergency Visit Emergency Visit: No - New Patient This patient is new to me today: Yes Date on this admission: 03/11/18 - Critical Care Critical Care patient: No - Discharge Referral Referred to [facility] Med P.C.: No
[2018-03-12] MEDS: IBUPROFEN 600 MG TABLET (FP) PO PRN (00:09)
[2018-03-12] MEDS: SIMETHICONE 80 MG TAB.CHEW (FP) PO PRN (00:09)
[2018-03-12] MEDS: FERROUS SO4 325 MG TABLET (FP) PO SCH (09:11)
[2018-03-12] MEDS: PRENATAL VITAMINS W/ FOLIC ACID TABLET (FP) PO SCH (09:11)
[2018-03-12 09:22] VITALS: BP 132/82; PULSE 101; TEMP 98.4
--- NOTE | 2018-03-18 18:19 | PATH ---
Surgical Pathology Report Patient Name: MARTÍN WILKS [facility]. Rec. #: [id number] /Age/Gender: 1995 (Age: 22) / F Account: [id number] Location: [facility] OBS/STROBOSCOPE OPERATOR Taken: 03/08/2018 Received: 03/10/2018 Reported: 03/18/2018 Physicians: Doretha Ochoa M.D. Specimen(s) Received PLACENTA Clinical History , 40.2 weeks' gestation, history of meningitis as a baby Final Diagnosis PLACENTA: THIRD TRIMESTER PLACENTA. TRIVASCULAR CORD. MEMBRANES WITH NO DIAGNOSTIC ABNORMALITIES. Electronically Signed Nayana Guerrero M.D. Gross Description The specimen is received fresh labeled placenta and is a 418 gram, 16.0 x 15.0 x 2.6 cm. placenta with attached membranes and umbilical cord. The attached membranes are dietrich, translucent with focal opacities and insert marginally. The umbilical cord measures 33 cm. in length and averages 1.1 cm. in diameter. The cord inserts eccentrically, 4 cm. to the nearest margin. No true knots or strictures are identified. Cut surface of the umbilical cord reveals 3 vessels. The surface is cook-blue with minimal fibrin deposition and appropriate caliber vessels. The maternal surface is red-brown with focal defects. Sectioning reveals red-brown, spongy parenchyma. No lesions are identified. Channel Machine Operator sections are submitted in three cassettes as follows: 1- membrane rolls and umbilical cord; 2-3- full thickness sections of placenta. /03/17/2018 saudi03/17/2018
== END 2018-03-12 11:50 | disposition home or self-care (01) | DRG 540 ==
LOC: JDEL 09:37 → JLDR 09:37 → EDSTATUS 10:03 → J3W 03-09 00:30
PROVIDERS: ADMIT Obstetrics & Gynecology; ATTEND Obstetrics & Gynecology
PROC: 10D00Z1 Extraction of Products of Conception, Low, Open Approach (ICD-10-PCS; principal; 2018-03-08)
DX: O48.0 Post-term pregnancy (principal); O62.0 Primary inadequate contractions; O85 Puerperal sepsis; R00.0 Tachycardia, unspecified; E86.0 Dehydration; Z3A.40 40 weeks gestation of pregnancy; Z37.0 Single live birth
CPT/HCPCS: 36415; 80048; 81003; 81015; 83605; 85025; 85610; 85730; 86593; 86850; 86900; 86901; 87040; 88307-TC; 93005; 93010; J7030

== ENCOUNTER 2021-08-14 18:55 | Emergency (ER) | payer OTHER ==
[2021-08-14 19:05] VITALS: BMI 33.2
[2021-08-14] MEDS ORDERED: FAMOTIDINE 20 MG/50 ML IVPB 20 MG/50 ML MG IVPB ONE ×2 (19:53→20:13)
[2021-08-14] MEDS ORDERED: SODIUM CHLORIDE 1,000 ML IV STA (19:53)
[2021-08-14] MEDS ORDERED: ACETAMINOPHEN 1000 MG/100 ML BAG IVPB ONE (19:56)
[2021-08-14] MEDS ORDERED: ONDANSETRON 4 MG/2 ML VIAL IVPUSH ONE (20:00)
[2021-08-14] MEDS ORDERED: ONDANSETRON 4 MG/2 ML VIAL ONE (20:13)
[2021-08-14] MEDS ORDERED: ACETAMINOPHEN INJECTION 100 ML IVPB ONE (20:13)
[2021-08-14 20:51] LABS: BASO % 0.5 % (0-2.0); EOS % 1.2 % (0-4.5); HEMATOCRIT 30.7 % (32.4-45.2); HEMOGLOBIN 9.8 GM/dL (10.7-15.3); LYMPH % 19.7 % (8-40); MCH 22.4 pg (25.7-33.7); MCHC 31.8 g/dl (32.0-36.0); MEAN CELL VOLUME 70.4 fl (80-96); MEAN PLT VOLUME 8.9 fl (7.5-11.1); MONO % 6.6 % (3.8-10.2); PLATELET COUNT 390 10^3/uL (134-434); RBC 4.36 M/mm3 (3.60-5.2); RDW 18.3 % (11.6-15.6); WHITE BLOOD COUNT 13.6 K/mm3 (4.0-10.0)
[2021-08-14 21:08] LABS: CALCIUM 8.7 mg/dL (8.5-10.1)
[2021-08-14 21:09] LABS: ALBUMIN 3.4 g/dl (3.4-5.0); BLOOD UREA NITROGEN 9.4 mg/dL (7-18)
[2021-08-14 21:12] LABS: CREATININE 0.9 mg/dL (0.55-1.3)
[2021-08-14 21:13] LABS: BILIRUBIN,TOTAL 0.2 mg/dL (0.2-1)
[2021-08-14 21:14] LABS: TOT PROT 7.2 g/dl (6.4-8.2)
[2021-08-14 21:38] LABS: URINE APPEARANCE CLEAR; URINE BILIRUBIN NEGATIVE (NEGATIVE); URINE COLOR YELLOW; URINE GLUCOSE (UA) NEGATIVE (NEGATIVE); URINE KETONE TRACE (NEGATIVE); URINE LEUK ESTERASE NEGATIVE (NEGATIVE); URINE NITRITE NEGATIVE (NEGATIVE); URINE PROTEIN NEGATIVE (NEGATIVE)
[2021-08-15] VITALS: BP 122/75; PULSE 84; TEMP 98.1
== END 2021-08-15 | disposition home or self-care (01) ==
LOC: JER 18:55
PROC: 3E0333Z Introduction of Anti-inflammatory into Peripheral Vein, Percutaneous Approach (ICD-10-PCS; principal; 2021-08-14)
PROC: 3E033GC Introduction of Other Therapeutic Substance into Peripheral Vein, Percutaneous Approach (ICD-10-PCS; 2021-08-14)
PROC: 3E033GC Introduction of Other Therapeutic Substance into Peripheral Vein, Percutaneous Approach (ICD-10-PCS; 2021-08-14)
PROC: 3E0337Z Introduction of Electrolytic and Water Balance Substance into Peripheral Vein, Percutaneous Approach (ICD-10-PCS; 2021-08-14)
DX: K80.81 Other cholelithiasis with obstruction (principal)
CPT/HCPCS: 36415; 76705-TC; 80053; 81003; 83690; 84703; 85025; 93005; 93010; 99285-25

== ENCOUNTER → 2021-09-20 | Day surgery (SDC) | payer OTHER ==
[2021-09-19 11:03] VITALS: BMI 34.0
[~2021-09-20] MED LIST: BUPIVACAINE HCL/PF 0.5% (5MG/ML) 10 ML VIAL IJ ONE; BUPIVACAINE HCL/PF 0.5% (5MG/ML) 10 ML VIAL ONE; DEXAMETHASONE SOD PHOSPHATE 4 MG/1 ML VIAL ONE; GLYCOPYRROLATE 0.2 MG/1 ML VIAL ONE; HYDROmorphone HCl 2 MG/ML VIAL ONE; LACTATED RINGERS SOLUTION 1,000 ML IV SCH; LIDOCAINE HCL/PF 2% SDV 5ML VIAL ONE; MIDAZOLAM HCL 2 MG/2 ML SINGLE DOSE VIAL ONE; NEOSTIGMINE METHYLSULFATE 0.5 MG/ML - 10 ML MDV ONE; ONDANSETRON 4 MG/2 ML VIAL ONE; PROPOFOL 20 ML ONE; ROCURONIUM BROMIDE 50 MG/5 ML SYRINGE ONE; ceFAZolin SODIUM 1 GM VIAL IVPB ONE; ceFAZolin SODIUM 1 GM VIAL ONE; oxyCODONE HCL 5 MG TABLET PO PRN
[2021-09-20] MEDS: ONDANSETRON 4 MG/2 ML VIAL IVPUSH PRN ×2 (12:44→14:08)
[2021-09-20 13:44] VITALS: TEMP 97.5
[2021-09-20 19:47] VITALS: BP 114/70; PULSE 80
== END | disposition home or self-care (01) ==
LOC: JASU-SURG 04:05
PROVIDERS: ATTEND Surgery
PROC: 0FT44ZZ Resection of Gallbladder, Percutaneous Endoscopic Approach (ICD-10-PCS; principal; 2021-09-20 10:00)
DX: K80.10 Calculus of gallbladder with chronic cholecystitis without obstruction (principal)
CPT/HCPCS: 81025; 88304-TC; 94760

== ENCOUNTER 2023-01-15 14:05 | Emergency (ER) | payer OTHER ==
[2023-01-15 14:22] VITALS: BP 102/64; PULSE 94; RESP 18; TEMP 98.4; BMI 28.1
[2023-01-15 17:37] LABS: HCG,QUALITATIVE URINE Positive
[2023-01-15 17:43] LABS: EPI CELLS >36 /uL (0-25.1); HYALINE CASTS 0 /uL (0-3.1); PH,URINE 6.5 (5.0-8.0); URINE APPEARANCE CLEAR; URINE BACTERIA 1526 /uL (0-1359); URINE BILIRUBIN NEGATIVE (NEGATIVE); URINE COLOR YELLOW; URINE GLUCOSE (UA) NEGATIVE (NEGATIVE); URINE KETONE NEGATIVE (NEGATIVE); URINE LEUK ESTERASE 1+ (NEGATIVE); URINE NITRITE NEGATIVE (NEGATIVE); URINE PROTEIN NEGATIVE (NEGATIVE); URINE RBC 10 /uL (0-23.9); URINE UROBILINOGEN 0.2 mg/dL (0.2-1.0); URINE WBC 22 /uL (0-25.8)
[2023-01-15 17:49] LABS: BASO % 0.6 % (0-2.0); EOS % 2.4 % (0-4.5); HEMATOCRIT 32.6 % (32.4-45.2); HEMOGLOBIN 10.3 GM/dL (10.7-15.3); LYMPH % 36.3 % (8-40); MCH 23.9 pg (25.7-33.7); MCHC 31.7 g/dl (32.0-36.0); MEAN CELL VOLUME 75.6 fl (80-96); MEAN PLT VOLUME 9.6 fl (7.5-11.1); MONO % 8.1 % (3.8-10.2); NEUT % 52.6 % (42.8-82.8); PLATELET COUNT 297 10^3/uL (134-434); RBC 4.31 M/mm3 (3.60-5.2); RDW 23.2 % (11.6-15.6); WHITE BLOOD COUNT 10.7 K/mm3 (4.0-10.0)
[2023-01-15 17:55] LABS: INR 1.01 (0.83-1.09); PROTHROMBIN TIME (PATIENT) 11.7 SEC (9.7-13.0)
[2023-01-15 17:58] LABS: ACTIVATED PTT 28.9 SECONDS (25.2-36.5)
[2023-01-15 18:21] LABS: POTASSIUM 3.9 mmol/L (3.5-5.1)
[2023-01-15 18:22] LABS: CALCIUM 9.3 mg/dL (8.5-10.1)
[2023-01-15 18:23] LABS: BLOOD UREA NITROGEN 4.8 mg/dL (7-18)
[2023-01-15 18:26] LABS: CREATININE 0.5 mg/dL (0.55-1.3)
[2023-01-15 18:55] LABS: ANISOCYTOSIS 3+; MACROCYTOSIS 0; TARGET CELLS 1+; TEAR DROP CELLS 1+
== END 2023-01-15 19:31 | disposition home or self-care (01) ==
LOC: JER 14:05
DX: O20.9 Hemorrhage in early pregnancy, unspecified (principal); O23.92 Unspecified genitourinary tract infection in pregnancy, second trimester; R82.71 Bacteriuria; Z3A.15 15 weeks gestation of pregnancy
CPT/HCPCS: 36415; 76801-TC; 80048; 81003; 84702; 84703; 85025; 85610; 85730; 86850; 86900; 86901; 87086; 99284-25

== ENCOUNTER 2023-06-05 10:47 | Emergency (ER) | payer OTHER ==
[2023-06-05 11:04] VITALS: BMI 29.2
[2023-06-05] MEDS ORDERED: ACETAMINOPHEN 500 MG TABLET (FP) PO ONE (12:15)
[2023-06-05] MEDS ORDERED: SODIUM CHLORIDE 0.9% 500 ML INFUS.BAG IV ONE ×2 (12:15→14:10)
[2023-06-05] MEDS ORDERED: ACETAMINOPHEN INJECTION 100 ML IVPB ONE (12:36)
[2023-06-05 12:54] LABS: BASO % 0.4 % (0-2.0); EOS % 0.1 % (0-4.5); HEMATOCRIT 31.7 % (32.4-45.2); HEMOGLOBIN 10.3 GM/dL (10.7-15.3); LYMPH % 24.9 % (8-40); MCH 24.9 pg (25.7-33.7); MCHC 32.4 g/dl (32.0-36.0); MEAN PLT VOLUME 8.2 fl (7.5-11.1); MONO % 7.9 % (3.8-10.2); NEUT % 66.7 % (42.8-82.8); PLATELET COUNT 288 10^3/uL (134-434); RBC 4.12 M/mm3 (3.60-5.2); RDW 19.2 % (11.6-15.6); WHITE BLOOD COUNT 5.6 K/mm3 (4.0-10.0)
[2023-06-05 13:21] LABS: POTASSIUM 4.1 mmol/L (3.5-5.1)
[2023-06-05 13:24] LABS: CALCIUM 9.1 mg/dL (8.5-10.1)
[2023-06-05 13:25] LABS: ALBUMIN 2.6 g/dl (3.4-5.0); BLOOD UREA NITROGEN 4.5 mg/dL (7-18)
[2023-06-05 13:27] LABS: CREATININE 0.6 mg/dL (0.55-1.3)
[2023-06-05 13:28] LABS: TOT PROT 7.1 g/dl (6.4-8.2)
[2023-06-05 13:30] LABS: BILIRUBIN,TOTAL 0.2 mg/dL (0.2-1)
[2023-06-05 15:52] VITALS: BP 100/59; PULSE 112; RESP 20; TEMP 97.4
== END 2023-06-05 17:30 | disposition home or self-care (01) ==
LOC: JER 10:47
DX: O98.513 Other viral diseases complicating pregnancy, third trimester (principal); J10.1 Influenza due to other identified influenza virus with other respiratory manifestations; O99.513 Diseases of the respiratory system complicating pregnancy, third trimester; J02.9 Acute pharyngitis, unspecified; R50.9 Fever, unspecified; M79.10 Myalgia, unspecified site; Z3A.36 36 weeks gestation of pregnancy; Z20.822 Contact with and (suspected) exposure to COVID-19
CPT/HCPCS: 0241U-QW; 36415; 80053; 85025; 93005; 93010; 99284-25

== ENCOUNTER 2023-07-01 06:05 | Inpatient (IN) | payer OTHER ==
[2023-07-01] MEDS: ELECTROLYTE-148 SOLN 500 ML IV SCH ×2 (06:15→07:34)
[2023-07-01] MEDS: CITRIC ACID/SODIUM CITRATE 30 ML UNIT-DOSE CUP PO ONE (06:50)
[2023-07-01 06:51] VITALS: BMI 31.1
[2023-07-01] MEDS ORDERED: LIGASURE IMPACT TP ONE (07:35)
[2023-07-01] MEDS ORDERED: ONDANSETRON 4 MG/2 ML VIAL IVPUSH PRN (07:45)
[2023-07-01] MEDS ORDERED: ACETAMINOPHEN 325 MG TABLET (FP) PO PRN (07:45)
[2023-07-01] MEDS ORDERED: SODIUM CHLORIDE 0.9% P/F 10 ML VIAL IJ ONE (07:58)
[2023-07-01] MEDS ORDERED: PHENYLEPHRINE HCL 10 MG/1 ML SINGLE DOSE VIAL ONE (07:58)
[2023-07-01] MEDS ORDERED: ceFAZolin SODIUM 1 GM VIAL ONE (07:58)
[2023-07-01] MEDS ORDERED: METHYLERGONOVINE MALEATE 0.2 MG/1 ML AMP IM PRN (08:25)
[2023-07-01] MEDS ORDERED: ELECTROLYTE-148 SOLN 1,000 ML IV SCH (08:30)
[2023-07-01] MEDS: morphine SULFATE/PF 1 MG/2 ML (2cc Syringe - QUVA) EP ONE (08:40)
[2023-07-01] MEDS ORDERED: OXYTOCIN 10 UNITS/ML VIAL ONE ×2 (08:49→08:58)
[2023-07-01] MEDS ORDERED: MIDAZOLAM HCL 2 MG/2 ML SINGLE DOSE VIAL ONE (09:01)
[2023-07-01] MEDS ORDERED: FENTANYL CITRATE/PF 50 MCG/ML VIAL ONE ×2 (09:02→09:03)
[2023-07-01] MEDS ORDERED: KETOROLAC TROMETHAMINE 30 MG/1 ML VIAL ONE (09:02)
[2023-07-01 09:35] LABS: CORD BASE EXCESS -2.8 mmol/L (0-2); CORD HCO3 23.2 mmHg (20-29); CORD PCO2 45.1 mmHg (30-78); CORD pH 7.33 (7.14-7.44)
[2023-07-01 09:37] LABS: CORD BASE EXCESS -1.2 mmol/L (0-2); CORD HCO3 23.7 mmHg (20-29); CORD PCO2 40.4 mmHg (30-78); CORD pH 7.386 (7.14-7.44)
[2023-07-01] MEDS ORDERED: AMPICILLIN - 2 GM in SODIUM CHLORIDE 100 ML IVPB ONE (10:34)
[2023-07-01] MEDS ORDERED: OXYTOCIN 30 UNITS in 0.9% NS 30 UNIT/500 ML INFUS.BAG IVPB SCH (10:45)
[2023-07-01] MEDS ORDERED: OXYTOCIN 20 UNITS in 0.9% NS 20 UNIT/1,000 ML INFUS.BAG IV ONE (11:46)
[2023-07-01] MEDS: OXYTOCIN 20 UNITS in 0.9% NS 20 UNIT/1,000 ML INFUS.BAG IV SCH (11:52)
[2023-07-01] MEDS ORDERED: AMPICILLIN - 1 GM in SODIUM CHLORIDE 100 ML IVPB SCH (14:45)
[2023-07-01] MEDS: FERROUS SO4 325 MG TABLET (FP) PO SCH (16:35)
[2023-07-01] MEDS: PRENATAL VITAMINS W/ FOLIC ACID TABLET (FP) PO SCH (16:35)
[2023-07-01] MEDS: IBUPROFEN 600 MG TABLET (FP) PO PRN (17:20)
[2023-07-02] MEDS: IBUPROFEN 800 MG/8 ML IJ IVPB PRN (04:33)
[2023-07-02 07:05] LABS: BASO % 0.5 % (0-2.0); EOS % 0.9 % (0-4.5); HEMATOCRIT 30.9 % (32.4-45.2); HEMOGLOBIN 9.8 GM/dL (10.7-15.3); LYMPH % 13.9 % (8-40); MCH 24.3 pg (25.7-33.7); MCHC 31.7 g/dl (32.0-36.0); MEAN CELL VOLUME 76.9 fl (80-96); MEAN PLT VOLUME 8.6 fl (7.5-11.1); MONO % 6.2 % (3.8-10.2); NEUT % 78.5 % (42.8-82.8); PLATELET COUNT 239 10^3/uL (134-434); RBC 4.02 M/mm3 (3.60-5.2); RDW 19.9 % (11.6-15.6)
[2023-07-02] MEDS ORDERED: BISACODYL 10 MG SUPP.RECT RC PRN (08:25)
[2023-07-02] MEDS: oxyCODONE HCL 5 MG TABLET PO PRN (21:16)
[2023-07-02] MEDS: SIMETHICONE 80 MG TAB.CHEW (FP) PO PRN (21:16)
[2023-07-02] MEDS: guaiFENesin 200 MG/10 ML 10 ML UNIT-DOSE CUPS PO PRN (21:16)
[2023-07-03] MEDS: AMOX TR/POT CLAV 500MG/125MG TABLETS (FP) PO SCH (09:23)
[2023-07-03] MEDS: oxyCODONE HCL 5 MG TABLET PO PRN (21:31)
[2023-07-03 22:19] VITALS: TEMP 98.3
[2023-07-04 08:29] LABS: BASO % 0.5 % (0-2.0); EOS % 3.2 % (0-4.5); HEMATOCRIT 30.8 % (32.4-45.2); HEMOGLOBIN 9.7 GM/dL (10.7-15.3); LYMPH % 30.1 % (8-40); MCH 24.3 pg (25.7-33.7); MCHC 31.4 g/dl (32.0-36.0); MEAN CELL VOLUME 77.4 fl (80-96); MEAN PLT VOLUME 8.7 fl (7.5-11.1); MONO % 6.1 % (3.8-10.2); NEUT % 60.1 % (42.8-82.8); PLATELET COUNT 277 10^3/uL (134-434); RBC 3.98 M/mm3 (3.60-5.2); WHITE BLOOD COUNT 12.1 K/mm3 (4.0-10.0)
[2023-07-04 12:35] VITALS: BP 113/76; PULSE 88; RESP 17
== END 2023-07-04 14:20 | disposition home or self-care (01) | DRG 540 ==
LOC: JLDR 06:05 → J3W 13:54
PROVIDERS: ADMIT Obstetrics & Gynecology; ATTEND Obstetrics & Gynecology
PROC: 10D00Z1 Extraction of Products of Conception, Low, Open Approach (ICD-10-PCS; principal; 2023-07-01)
PROC: 0UT70ZZ Resection of Bilateral Fallopian Tubes, Open Approach (ICD-10-PCS; 2023-07-01)
DX: O34.211 Maternal care for low transverse scar from previous cesarean delivery (principal); O69.81X0 Labor and delivery complicated by cord around neck, without compression, not applicable or unspecified; Z30.2 Encounter for sterilization; Z3A.39 39 weeks gestation of pregnancy; Z37.0 Single live birth
CPT/HCPCS: 36415; 36600; 82803; 85025; 86850; 86900; 86901; 94010